=== PATIENT | female | born 1980 | race Caucasian/White ===

== ENCOUNTER 2024-12-24 11:59 | Emergency (ER) | payer BC, SELFPAY ==
[2024-12-24 12:05] VITALS: BP 105/54; PULSE 77; RESP 12; TEMP 36.5; O2SAT 97
--- NOTE | 2024-12-24 12:37 | DI.RAD_ITS ---
Exam(s) XR KNEE LT 3V AP,LAT,VERITO EXAM: XR KNEE LT 3V AP,LAT,VERITO CLINICAL HISTORY: L knee injury. TECHNIQUE: 2D digital imaging was performed of the left knee. Three images were obtained. AP, late ral and PA tunnel views were obtained. COMPARISON: No exams were available for comparison FINDINGS: BONES: No acute fracture is present. No bony destructive lesion is seen. JOINTS: The knee is normally aligned. No joint effusion is seen. No loose body. SOFT TISSUE: Normal. IMPRESSION: Normal radiographs of the left knee. DATA REPOSITORY: RADIATION DOSE DELIVERED:
--- NOTE | 2024-12-24 13:01 | ED.GENADUL_ITS ---
Discharge Plan Disposition Patient Disposition: Home Condition: Stable Discharge Details Clinical Impression: Sprain of left knee Primary Care Provider: Ayesha,Local ED Provider: Venkata Grissom Home Meds and New Rx's Prescriptions: No Action No Known Home Meds Discharge Instructions Instructions: Knee Sprain ED Additional Instructions: You were seen in the emergency department for the likely sprain of your left knee, you have no evidence of ligamentous laxity on exam and your x-ray shows a small joint effusion, no fractures. Please treat this like a significant sprain with frequent rest, ice, compression and elevation. Please use therapeutic dosing of Tylenol (acetamenophen) & Advil (ibuprofen) in an alternating fashion as follows: Take 1000mg of Tylenol every 6 hours without missing doses- that is 4 times per day. Jail in between the Tylenol dosings, take 400-600mg of Advil also on a 6 hour schedule, that is also 4 times per day. The daily maximum dosing of Tylenol is 4000mg, and the daily maximum dosing of Advil is 2400mg. This is safe to do for weeks. Please note that some common cold medications & prescription pain medications may contain acetamenophen and you need to read OTC drug labels and factor that in to maximum daily dosings. If not better by the 2-week dileep please seek a an orthopedic follow-up with likely MRI, please return to an emergency facility for any signs of neurovascular compromise distal to the left knee. Discharge Data Discharge Date/Time-TO BE ENTERED AT DEPARTURE: 12/24/24 13:20 HPI General Date/Time Provider Initiated Documentation: 12/24/24 12:13 . HPI Narrative: 44 year-old female presents to ED today by POV/ambulating with a chief complaint of L knee injury while skiing with onset yesterday- mostly on medial aspect. Quality described as painful inside L knee join, limited ROM, no radiation to bruising, severe swelling, inability to ambulate, tib/fib tenderness, numbness/tingling distal to knee. Severity is described as moderate. Palliating factors include nothing specific beyond OTC analgesics and ice attempted- some relief. Provoking factors include nothing specific. Events leading up to the incident/Associated Symptoms: Patient denies surgical history to L knee, is R- side dominant. Patient not anticoagulated. Related Data Home Medications ?Medication ?Instructions ?Recorded ?Confirmed Unknown [No Known Home Meds] 12/24/24 12/24/24 Allergies Allergy/AdvReac Type Severity Reaction Status Date / Time No Known Allergies Allergy Unverified 12/24/24 12:06 General Stated Complaint: Orthopedic KRYSTEN: 4 Review of Systems All systems reviewed & are unremarkable except as noted in HPI and below Exam Narrative Exam Narrative: GENERAL APPEARANCE: Well-nourished, non-toxic, awake and alert, atraumatic, no acute distress. SKIN: Warm, pink, dry, intact, without rashes/lesions/ulcerations. HEAD: Normocephalic, atraumatic, normal hair distribution for gender/age. EYES: Normal conjunctiva, no exudates on lids/lashes. ENT: Nares patent, no circumoral cyanosis, no facial swelling NECK: Supple, trachea midline, painless cervical ROM. LUNGS/CHEST: Non-labored respirations, normal A/P diameter, symmetrical expansion, no chest wall deformity HEART (CV/PV): No peripheral edema, no JVD. ABDOMEN: Soft, non-distended, no guarding. MSK: Normal ROM, no swelling/deformity to bilateral UEs or LEs, moving all extremities without weakness, no cyanosis, spine midline without tenderness, normal curvature, left knee has mild pain at medial aspect knee but no ligamentous laxity with varus/valgus forces, and Tere negative, Vincenzo negative, no crepitus, mild joint line tenderness, mild popliteal fossa tenderness, neurovascular intact distal NEURO: Mental Status AAOx4 - alert to person, place, time, events No facial droop, no forehead involvement. Motor: No focal weakness - strength 5/5 in bilateral UEs and LEs, proximal and distal, symmetric. Sensory: sensation intact to light touch globally. Gait normal: patient ambulated without ataxia into ED room. PSYCH: euthymic, cooperative, pleasant, appropriate speech Course Vital Signs Vital signs: Vital Signs Temperature 36.5 C 12/24/24 12:05 Pulse 77 12/24/24 12:05 Respiratory Rate 12 12/24/24 12:05 Blood Pressure 105/54 L 12/24/24 12:05 Pulse Oximetry 97 12/24/24 12:05 Temperature 36.5 C 12/24/24 12:05 Temperature Source Oral 12/24/24 12:05 Pulse 77 12/24/24 12:05 Respiratory Rate 12 12/24/24 12:05 Blood Pressure 105/54 L 12/24/24 12:05 Blood Pressure Position Sitting 12/24/24 12:05 Pulse Oximetry 97 12/24/24 12:05 Oxygen Delivery Method Room Air 12/24/24 12:05 Oxygen Flow Rate 0 12/24/24 12:05 Pain Level 8 12/24/24 12:05 Medical Decision Making This dictation utilizes [id number] dictation software and may contain unedited grammatical errors. 44 year-old female presents to ED today by POV/ambulating with a chief complaint of L knee injury while skiing with onset yesterday- mostly on medial aspect. Quality described as painful inside L knee join, limited ROM, no radiation to bruising, severe swelling, inability to ambulate, tib/fib tenderness, numbness/tingling distal to knee. Severity is described as moderate. Palliating factors include nothing specific beyond OTC analgesics and ice attempted- some relief. Provoking factors include nothing specific. Events leading up to the incident/Associated Symptoms: Patient denies surgical history to L knee, is R- side dominant. Patients' medical history: Negative otherwise healthy. Family and social history: Noncontributory. Pertinent exam findings / vital signs include left knee diffuse joint line tenderness without crepitus to tibial plateau or fibular head, patella mobile without crepitus, no crepitus to femur, pain with varus valgus forces at medial aspect but no ligamentous laxity, negative Tere's, negative Vincenzo test. Differential / pathologies of concern include internal derangement of knee, ligamentous injury, meniscus injury, less likely fracture. Diagnostic studies of: -XR L knee-shows no acute fracture. Interventions of: -Hinged knee brace and crutches, recommend orthopedic follow-up. ED Course/Assessment/Plan: 44-year-old male had a left knee injury while skiing yesterday and has pain to the medial aspect, I discussed possible ligamentous or meniscus injury, recommend RICE therapy and therapeutic dosing of Tylenol and ibuprofen with trial of relief for the next 2 weeks and plan a routine orthopedic follow-up for any persistent pain for possible MRI and specialist evaluation at that time. Findings not consistent with fracture, neurovascular compromise. Disposition of sprain of left knee. Patient verbalized understanding of the plan and return to ED criteria and engaged in shared decision making. Medical Records Medical records reviewed: Yes I reviewed the patient's medical records. Imaging Data Radiologic Study: Attestation: I personally reviewed and interpreted this imaging study as follows: Imaging: X-Ray Radiologist's impression: EXAM: XR KNEE LT 3V AP,LAT,VERITO CLINICAL HISTORY: L knee injury. TECHNIQUE: 2D digital imaging was performed of the left knee. Three images were obtained. AP, lateral and PA tunnel views were obtained. COMPARISON: No exams were available for comparison FINDINGS: BONES: No acute fracture is present. No bony destructive lesion is seen. JOINTS: The knee is normally aligned. No joint effusion is seen. No loose body. SOFT TISSUE: Normal. IMPRESSION: Normal radiographs of the left knee. Quality:SDOH Health Related Social Needs: No Data to Display [facility] All Active Problems (Updated 12/24/24 @ 13:03 by IVETTE Virgen) Sprain of left knee (Acute) Social History Smoking/Tobacco Use Status: Never Smoking risk assessment performed?: Yes Alcohol Intake: current Alcohol Intake frequency: a few times a month Alcohol type: wine Drug use: Never Substance use type: does not use Housing: house Do you feel safe at home: Yes Do you feel safe in your relationship?: Yes
[2024-12-24 13:18] VITALS: BP 110/81; PULSE 72; RESP 16; O2SAT 100
== END 2024-12-24 13:20 | disposition home or self-care (01) ==
LOC: ER 13:51
PROVIDERS: Emergency Provider Physician Assistant
DX: S83.92XA Sprain of unspecified site of left knee, initial encounter (principal); X58.XXXA Exposure to other specified factors, initial encounter; Y93.23 Activity, snow (alpine) (downhill) skiing, snowboarding, sledding, tobogganing and snow tubing
CPT/HCPCS: 29505; 73562; 99283